=== PATIENT | female | born 1995 | race African-American/Black ===

== ENCOUNTER 2020-03-09 12:44 | Emergency (ER) | payer OTHER, MEDICAID ==
[~2020-03-09] VITALS: Ht 177.8 cm; Wt 110.0 kg
[2020-03-09 12:45] VITALS: BP 131/90
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
[2020-03-09] MEDS ORDERED: IBUP-1007 PO (13:57)
[2020-03-09] MEDS ORDERED: METH-38 PO (13:57)
== END 2020-03-09 14:02 | disposition home or self-care (01) ==
LOC: ER 12:44
DX: S16.1XXA Strain of muscle, fascia and tendon at neck level, initial encounter (principal); R51 Headache; R60.0 Localized edema; J45.909 Unspecified asthma, uncomplicated; F12.90 Cannabis use, unspecified, uncomplicated; Z90.89 Acquired absence of other organs; Z98.890 Other specified postprocedural states; V89.2XXA Person injured in unspecified motor-vehicle accident, traffic, initial encounter; Y93.89 Activity, other specified; Y92.413 State road as the place of occurrence of the external cause; Y99.8 Other external cause status
CPT/HCPCS: 72125; 99284